=== PATIENT | male | born 1955 | race Caucasian/White ===

== ENCOUNTER 2020-02-19 15:05 | Observation (INO) ==
[2020-02-19 15:56] LABS: Basophils # 0.1 10*3/uL (0.0-0.2); Basophils % 0.9 % (0.0-0.8); Eosinophils # 0.2 10*3/uL (0.0-0.87); Eosinophils % 1.4 % (0.00-10.9); Hemoglobin 13.8 GM/DL (14.0-18.0); Immature Granulocytes % 0.4 %; Immature Granulocytes Absolute 0.04 #; Lymphocytes # 3.5 10*3/uL (1.4-4.0); Lymphocytes % 32.3 % (21.2-54.2); Mean Corpuscular HGB Conc 32.1 GM/DL (32-36); Mean Corpuscular Volume 84.1 FL (87-102); Mean Platelet Volume 10.3 FL (9.6-12.0); Monocytes % 7.1 % (1.7-12.7); Neutrophils % 57.9 % (38.7-73.9); Platelet Count 220 T/CUMM (130-400); Red Blood Count 5.11 MC/CUMM (3.8-5.5); Red Cell Distribution Width 14.4 % (9.3-17.3); White Blood Count 10.7 T/CUMM (4-12)
[2020-02-19 16:03] LABS: INR 0.9; PT Patient Result 10.1 SECS (9.8-11.9)
[2020-02-19 16:08] LABS: Alanine Aminotransferase 29 U/L (16-61); Albumin 3.5 G/DL (3.4-5.0); Alkaline Phosphatase 110 U/L (45-117); Aspartate Amino Transferase 33 U/L (0-37); Bilirubin,Total < 0.39 MG/DL (0.2-1.0); Blood Urea Nitrogen 12 MG/DL (7-18); Calcium 9.3 MG/DL (8.5-10.1); Estimated Glom Filtration Rate 125 ML/MIN; Glucose 129 MG/DL (74-106); Osmolality,Calculated 269.2 MOS/KG (273-304); Total Protein 7.8 G/DL (6.4-8.3)
[2020-02-19] MEDS ORDERED: ALBUTEROL/IPRATROPIUM 3 ML NEB RESP TX STA (16:19)
[2020-02-19 16:34] LABS: Bilirubin,Urine Negative (Negative); Blood, Urine Negative (Negative); Glucose,Urine (UA) Negative (Negative); Ketones,Urine Negative (Negative); Nitrite,Urine Negative (Negative); Protein,Urine Negative; RBC,Urine <1 /HPF (0-4); Urine Appearance CLEAR (Clear); Urine Color Yellow (Yellow); Urine Specific Gravity 1.009 (1.001-1.035); Urine Urobilinogen < 2.0 EU/DL (0.2-1.0); WBC,Urine <1 /HPF (0-6)
[2020-02-19 16:36] LABS: Eosinophils 1 % (0-10); Lymphocytes 40 % (20-55); Segmented Neutrophils 58 % (50-85); Total Cells Counted 100
[2020-02-19 16:37] LABS: Hypochromasia 2+; Microcytosis Slight; Platelet Estimate Normal; Reactive Lymphocytes 2+
[2020-02-19 16:38] LABS: Polychromasia 1+
[2020-02-19] MEDS ORDERED: GLUCAGON 1 MG VIAL IM PRN ×2 (19:24→19:25)
[2020-02-19] MEDS ORDERED: DEXTROSE 50% 25 GM/50 ML VIAL IV PRN ×2 (19:24→19:25)
[2020-02-19] MEDS ORDERED: ONDANSETRON 4 MG/2 ML VIAL IV PRN (19:24)
[2020-02-19] MEDS ORDERED: DOCUSATE SODIUM 100 MG CAPSULE PO PRN (19:26)
[2020-02-19] MEDS ORDERED: ALPRAZolam 0.5 MG TABLET PO PRN (19:33)
[2020-02-19] MEDS ORDERED: ALBUTEROL 2.5 MG/3 ML NEB RESP TX PRN (19:37)
[2020-02-19 19:57] LABS: Troponin I < 0.015 NG/ML (0.00-0.045)
[2020-02-19] MEDS ORDERED: ENOXAPARIN 40 MG/0.4 ML SYRINGE SUBCUT SCH (21:00)
[2020-02-19] MEDS: INSULIN REGULAR 100 UNIT/ML SUBCUT SCH (21:36)
[2020-02-19] MEDS: CYCLOBENZAPRINE 10 MG TABLET PO SCH (22:31)
[2020-02-19] MEDS: PREGABALIN 75 MG CAPSULE PO SCH (22:31)
[2020-02-19] MEDS: NICOTINE 21 MG/24 HR PATCH TRANSDERM SCH (22:33)
[2020-02-19] MEDS: PRAMIPEXOLE 0.25 MG TABLET PO SCH (22:34)
[2020-02-20 04:54] LABS: Basophils # 0.1 10*3/uL (0.0-0.2); Basophils % 0.7 % (0.0-0.8); Eosinophils # 0.1 10*3/uL (0.0-0.87); Hematocrit 39.8 VOL% (42.0-52.0); Hemoglobin 13.2 GM/DL (14.0-18.0); Immature Granulocytes % 0.3 %; Immature Granulocytes Absolute 0.03 #; Lymphocytes % 28.3 % (21.2-54.2); Mean Corpuscular HGB Conc 33.2 GM/DL (32-36); Mean Corpuscular Volume 83.3 FL (87-102); Mean Platelet Volume 10.2 FL (9.6-12.0); Monocytes % 5.1 % (1.7-12.7); Neutrophils % 64.6 % (38.7-73.9); Platelet Count 203 T/CUMM (130-400); Red Blood Count 4.78 MC/CUMM (3.8-5.5); Red Cell Distribution Width 14.6 % (9.3-17.3); White Blood Count 10.7 T/CUMM (4-12)
[2020-02-20 05:14] LABS: Barbiturates Screen,Urine Negative (Negative); Benzodiazepines Screen,Urine Negative (Negative); Cannabinoid Screen,Urine Negative (Negative); Opiate Screen,Urine Positive (Negative); Phencyclidine Screen,Urine Negative (Negative)
[2020-02-20 05:26] LABS: Osmolality,Calculated 273.8 MOS/KG (273-304)
[2020-02-20 05:33] LABS: Troponin I < 0.015 NG/ML (0.00-0.045)
[2020-02-20 05:38] LABS: Risk Ratio 4.46; VLDL CHOLESTEROL 93.4 MG/DL
[2020-02-20] MEDS: ALBUTEROL/IPRATROPIUM 3 ML NEB RESP TX SCH ×3 (08:27→14:30)
[2020-02-20] MEDS ORDERED: CLOPIDOGREL 75 MG TABLET PO SCH (09:00)
[2020-02-20] MEDS ORDERED: predniSONE 5 MG TABLET PO SCH (09:00)
[2020-02-20] MEDS ORDERED: ASPIRIN EC 81 MG TABLET PO SCH (09:00)
[2020-02-20] MEDS ORDERED: DULoxetine 30 MG CAPSULE PO SCH (09:00)
[2020-02-20] MEDS ORDERED: ROSUVASTATIN 20 MG TABLET PO SCH (09:00)
[2020-02-20] MEDS ORDERED: lisinopriL 10 MG TABLET PO SCH (09:00)
[2020-02-20] MEDS ORDERED: PANTOPRAZOLE 40 MG TABLET PO SCH (09:00)
[2020-02-20] MEDS ORDERED: METOPROLOL SUCCINATE XL 25 MG TABLET PO SCH (09:00)
[2020-02-20] MEDS: PREGABALIN 75 MG CAPSULE PO SCH (09:02)
[2020-02-20] MEDS: PRAMIPEXOLE 0.25 MG TABLET PO SCH (09:03)
[2020-02-20] MEDS: NICOTINE 21 MG/24 HR PATCH TRANSDERM SCH (09:04)
[2020-02-20] MEDS: CYCLOBENZAPRINE 10 MG TABLET PO SCH (09:04)
[2020-02-20 12:08] VITALS: BP 123/73
[2020-02-20] MEDS: INSULIN REGULAR 100 UNIT/ML SUBCUT SCH ×2 (13:15→13:16)
[2020-02-20 13:48] LABS: Troponin I < 0.015 NG/ML (0.00-0.045)
== END 2020-02-20 15:07 | disposition home health service (06) ==
LOC: EDBD → EDUNIT# → N.EDINP 15:05 → N.ED 15:05 → N.TELEN 20:59
PROVIDERS: ADMIT Internal Medicine Geriatric Medicine; ATTEND Internal Medicine Geriatric Medicine